=== PATIENT | male | born 1980 ===

== ENCOUNTER 2018-01-30 13:32 | Emergency (ER) | payer BC ==
[2018-01-30 13:53] VITALS: BP 160/108
--- NOTE | 2018-01-30 14:02 | UC ---
Ear Complaint HPI - HPI Summary HPI Summary: 37 year old male presents with 1 week history of right ear fullness that is now involving the left ear as well. States "it feels like I'm under water". Associated with chronic nasal congestion. Denies fever, chills, headache, sinus pain or pressure, ear pain or drainage, sore throat, chest pain, shortness of breath, or cough. 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 - Surgical History Surgical History: Yes Surgery Procedure, Year, and Place: removed a vocal coard Other Surgical History: Vocal cord removal as child - Family History Family History: Noncontributory - Social History Occupation: Employed Full-time Lives: With Family Alcohol Use: Daily Substance Use Type: None Smoking Status (MU): Never Smoked Tobacco Review of Systems Constitutional: Negative Skin: Negative Eyes: Negative ENT: Other - See HPI Respiratory: Negative Cardiovascular: Negative Is Patient Immunocompromised?: No All Other Systems Reviewed And Are Negative: Yes Physical Exam Triage Information Reviewed: Yes Appearance: Well-Appearing, No Pain Distress, Well-Nourished Vital Signs: Initial Vital Signs Temp 98.4 F 01/30/18 13:50 Pulse 65 01/30/18 13:50 Resp 18 01/30/18 13:50 BP 160/108 01/30/18 13:50 Pulse Ox 100 01/30/18 13:50 Eyes: Positive: Conjunctiva Clear. Negative: Discharge ENT: Positive: Hearing grossly normal, Nasal congestion, Uvula midline, Other - Bilateral TMs intact. There are some air bubbles noted behind right TM. No erythema.. Negative: Pharyngeal erythema, Nasal drainage, Tonsillar swelling, Tonsillar exudate, Sinus tenderness Neck: Positive: Supple, Nontender, No Lymphadenopathy Respiratory: Positive: Lungs clear, Normal breath sounds, No respiratory distress Cardiovascular: Positive: RRR, No Murmur Neurological: Positive: Alert Skin Exam: Normal Ear Complaint Course/Dx - Course Course Of Treatment: Patient with 1 week history right ear fullness that is starting to involve left ear as well. Exam unremarkable except for some air bubbles behind right TM. No evidence of infection. Has chronic nasal congestion. Suspect eustachian tube dysfunction. Will treat with steroid nasal spray and non-drowsy antihistamine. He is to follow up with PCP if symptoms persist. Verbalizes understanding and agrees with POC. - Differential Dx/Diagnosis Provider Diagnoses: bilateral eustachian tube dysfunction, elevated blood pressure reading Discharge - Sign-Out/Discharge Documenting (check all that apply): Patient Departure All imaging exams completed and their final reports reviewed: No Studies - Discharge Plan Condition: Stable Disposition: HOME Prescriptions: Fluticasone NASAL SPRAY 50MCG* [Flonase NASAL SPRAY 50MCG*] 2 spray BOTH NARES DAILY #1 btl Loratadine 10 mg PO DAILY #30 capsule Referrals: No Primary Care Phys,NOPCP [Primary Care Provider] - [facility] [place] [facility] REFERRAL [Outside] Additional Instructions: Your symptoms appear to be caused by a condition called eustachian tube dysfunction. I have provided you handout on this condition from [employer]. Be sure to review this information. Start fluticasone nasal spray 2 sprays each nostril once daily. Take loratadine 10 mg 1 tab daily. Your blood pressure was elevated in the clinic today. It is recommended that you follow up with your primary care provider within the next 4 weeks to have this rechecked. Sooner if your symptoms persist. - Billing Disposition and Condition Condition: STABLE Disposition: Home
== END 2018-01-30 14:25 | disposition home or self-care (01) ==
LOC: UCEAST 13:32
DX: H69.83 Other specified disorders of Eustachian tube, bilateral (principal); R03.0 Elevated blood-pressure reading, without diagnosis of hypertension; R09.81 Nasal congestion
CPT/HCPCS: 99202; G0463